=== PATIENT | male | born 1965 | race African-American/Black ===

== ENCOUNTER 2022-06-04 17:40 | Emergency (ER) | payer OTHER ==
[~2022-06-04] VITALS: Ht 188 cm; Wt 160.1 kg
[2022-06-04] MEDS ORDERED: NAPROXEN500 MG PO (20:40)
[2022-06-04 21:00] VITALS: BP 155/100
== END 2022-06-04 21:00 | disposition home or self-care (01) | DRG 563 ==
LOC: ED 17:40
DX: S93.402A Sprain of unspecified ligament of left ankle, initial encounter (principal); X50.1XXA Overexertion from prolonged static or awkward postures, initial encounter